=== PATIENT | male | born 1985 | race Caucasian/White ===

== ENCOUNTER 2022-09-22 09:37 | Emergency (ER) | payer BC ==
[2022-09-22] MEDS ORDERED: Diphtheria,Pertussis(Acell),Tetanus Vaccine 0.5 ML Syringe IM ONE (10:15)
[2022-09-22] MEDS ORDERED: Lidocaine 1% PF 2 ML SDV INJECT ONE (10:15)
[2022-09-22] MEDS ORDERED: Cephalexin 500 MG Cap PO ONE (10:29)
[2022-09-22] MEDS ORDERED: Acetaminophen/HYDROcodone 325-5 MG Tab PO ONE (10:29)
== END 2022-09-22 11:01 | disposition home or self-care (01) ==
LOC: MW.ED 09:37
DX: S67.191A Crushing injury of left index finger, initial encounter (principal); H66.91 Otitis media, unspecified, right ear; Z79.899 Other long term (current) drug therapy; Z23 Encounter for immunization
CPT/HCPCS: 64450; 73140; 90471; 90715; 99283; A9270

== ENCOUNTER 2023-10-30 23:35 | Emergency (ER) | payer BC ==
[2023-10-31] MEDS ORDERED: Ibuprofen 400 MG Tab PO ONE (00:04)
== END 2023-10-31 00:59 | disposition home or self-care (01) ==
LOC: MW.ED 23:35
DX: J02.9 Acute pharyngitis, unspecified (principal); Z20.822 Contact with and (suspected) exposure to COVID-19
CPT/HCPCS: 87651; 99283; A9270

== ENCOUNTER 2024-09-04 21:59 | Emergency (ER) | payer OTHER ==
[2024-09-04] MEDS: Cyclobenzaprine 10 MG Tab PO ONE (23:45)
== END 2024-09-04 23:58 | disposition home or self-care (01) ==
LOC: MW.ED 21:59
DX: S39.011A Strain of muscle, fascia and tendon of abdomen, initial encounter (principal); X58.XXXA Exposure to other specified factors, initial encounter
CPT/HCPCS: 93971; 99283; A9270

== ENCOUNTER 2024-09-16 18:56 | Emergency (ER) | payer OTHER | END 2024-09-16 20:40 | disposition home or self-care (01) | LOC: MW.ED 18:56 | DX: L03.116 Cellulitis of left lower limb (principal); Z79.899 Other long term (current) drug therapy; Z75.8 Other problems related to medical facilities and other health care | CPT/HCPCS: 99283 ==

== ENCOUNTER 2024-09-22 05:19 | Emergency (ER) | payer OTHER ==
[2024-09-22] MEDS: Ketorolac 30 MG/ML SDV IM ONE (06:43)
== END 2024-09-22 06:51 | disposition home or self-care (01) ==
LOC: MW.ED 05:19
DX: L03.115 Cellulitis of right lower limb (principal); Z79.899 Other long term (current) drug therapy
CPT/HCPCS: 96372; 99283; J1885

== ENCOUNTER 2025-02-01 19:32 | Emergency (ER) | payer BC ==
[2025-02-01 21:23] LABS: BASOPHILS ABSOLUTE AUTO 0.14 K/uL (0.00-0.20); BASOPHILS PERCENT AUTO 0.8 % (0.0-1.0); EOSINOPHILS ABSOLUTE AUTO 0.22 K/uL (0.00-0.45); EOSINOPHILS PERCENT AUTO 1.3 % (0.0-6.0); HEMATOCRIT 46.5 % (42.0-52.0); HEMOGLOBIN 15.5 g/dL (14.0-18.0); IMMATURE GRAN ABSOLUTE AUTO 0.15 K/uL (0.00-0.05); IMMATURE GRAN PERCENT AUTO 0.9 % (0.0-0.4); LYMPHOCYTES ABSOLUTE AUTO 2.65 K/uL (1.00-4.80); LYMPHOCYTES PERCENT AUTO 15.7 % (24.0-44.0); MEAN CORPUSCULAR HGB CONC 33.3 g/dL (32.0-36.0); MEAN PLATELET VOLUME 9.7 fL (9.4-12.4); MONOCYTES ABSOLUTE AUTO 1.28 K/uL (0.00-0.80); MONOCYTES PERCENT AUTO 7.6 % (0.0-8.0); NEUTROPHILS ABSOLUTE AUTO 12.49 K/uL (1.80-7.70); NEUTROPHILS PERCENT AUTO 73.7 % (41.0-71.0); PLATELET COUNT,PLT 353 K/uL (150-400); RED BLOOD CELL COUNT 5.74 M/uL (4.52-5.90); WHITE BLOOD CELL COUNT,WBC 16.93 K/uL (3.9-11.3)
[2025-02-01 21:52] LABS: CALCIUM 9.1 mg/dL (8.5-10.1); CARBON DIOXIDE,CO2 27.6 mmol/L (21.0-32.0); CREATININE 1.3 mg/dL (0.8-1.3); EST CRCL DRUG DOSING (CG) 82.08 mL/min; POTASSIUM,K 4.3 mmol/L (3.5-5.1)
[2025-02-01] MEDS: Diltiazem 25 MG/5 ML SDV IVPUSH ONE ×2 (22:25→22:52)
[2025-02-02] MEDS: Diltiazem 120 MG Cap.CD PO ONE
[2025-02-02] MEDS: Apixaban 5 MG Tab PO ONE (01:07)
[2025-02-02] MEDS: LORazepam 2 MG/ML SDV IVPUSH ONE (01:07)
[2025-02-02] MEDS: Diltiazem 100 MG in Sodium Chloride 0.9% 100 ML IV SCH (01:27)
== END 2025-02-02 01:50 ==
LOC: MW.ED 19:32
DX: I48.91 Unspecified atrial fibrillation (principal)
CPT/HCPCS: 36415; 71046; 80048; 83605; 83735; 84484; 85025; 93005; 96365; 96375; 96376; 99285; A9270; J2060; J3490; 99283

== ENCOUNTER 2025-02-24 07:15 | Emergency (ER) | payer OTHER, BC ==
[2025-02-24] MEDS ORDERED: Morphine 2 MG/ML SYRINGE IVPUSH PRN (07:35)
[2025-02-24] MEDS ORDERED: Ondansetron 4 MG/2 ML SDV IVPUSH PRN (07:36)
[2025-02-24] MEDS: Dexamethasone 4 MG/ML SDV IVPUSH ONE (07:49)
[2025-02-24 07:51] LABS: BASOPHILS ABSOLUTE AUTO 0.18 K/uL (0.00-0.20); BASOPHILS PERCENT AUTO 1.3 % (0.0-1.0); EOSINOPHILS ABSOLUTE AUTO 0.42 K/uL (0.00-0.45); EOSINOPHILS PERCENT AUTO 2.9 % (0.0-6.0); HEMATOCRIT 47.7 % (42.0-52.0); HEMOGLOBIN 15.6 g/dL (14.0-18.0); IMMATURE GRAN ABSOLUTE AUTO 0.14 K/uL (0.00-0.05); LYMPHOCYTES ABSOLUTE AUTO 1.62 K/uL (1.00-4.80); LYMPHOCYTES PERCENT AUTO 11.4 % (24.0-44.0); MEAN CORPUSCULAR HEMOGLOBIN 26.8 pg (28.0-32.0); MEAN CORPUSCULAR HGB CONC 32.7 g/dL (32.0-36.0); MEAN CORPUSCULAR VOLUME 81.8 fL (83.0-99.0); MEAN PLATELET VOLUME 9.6 fL (9.4-12.4); MONOCYTES ABSOLUTE AUTO 1.31 K/uL (0.00-0.80); MONOCYTES PERCENT AUTO 9.2 % (0.0-8.0); NEUTROPHILS ABSOLUTE AUTO 10.59 K/uL (1.80-7.70); NEUTROPHILS PERCENT AUTO 74.2 % (41.0-71.0); PLATELET COUNT,PLT 303 K/uL (150-400); RED BLOOD CELL COUNT 5.83 M/uL (4.52-5.90); WHITE BLOOD CELL COUNT,WBC 14.26 K/uL (3.9-11.3)
[2025-02-24 08:23] LABS: ALBUMIN 3.5 g/dL (3.4-5.0); BILIRUBIN TOTAL 0.4 mg/dL (0.2-1.0); CALCIUM 8.8 mg/dL (8.5-10.1); CARBON DIOXIDE,CO2 28.1 mmol/L (21.0-32.0); CREATININE 1.2 mg/dL (0.8-1.3); EST CRCL DRUG DOSING (CG) 88.92 mL/min; MAGNESIUM 2.1 mg/dL (1.8-2.4); POTASSIUM,K 4.7 mmol/L (3.5-5.1)
== END 2025-02-24 09:37 | disposition home or self-care (01) ==
LOC: MW.ED 07:15
DX: R07.9 Chest pain, unspecified (principal); I50.9 Heart failure, unspecified
CPT/HCPCS: 36415; 71045; 80053; 83690; 83735; 83880; 84484; 85025; 93005; 96374; 99285; J1100; 93010; 99284

== ENCOUNTER 2025-03-23 11:37 | Emergency (ER) | payer BC ==
[2025-03-23] MEDS ORDERED: Sodium Chloride 0.9% 10 ML Syringe FLUSH PRN (12:12)
[2025-03-23] MEDS ORDERED: Sodium Chloride 0.9% 20 ML SDV IV PRN (12:12)
[2025-03-23] MEDS ORDERED: Sodium Chloride 0.9% 2.5 ML Syringe FLUSH PRN (12:12)
[2025-03-23 12:22] LABS: BASOPHILS ABSOLUTE AUTO 0.15 K/uL (0.00-0.20); BASOPHILS PERCENT AUTO 1.1 % (0.0-1.0); EOSINOPHILS ABSOLUTE AUTO 0.35 K/uL (0.00-0.45); EOSINOPHILS PERCENT AUTO 2.5 % (0.0-6.0); HEMATOCRIT 48.9 % (42.0-52.0); HEMOGLOBIN 16.3 g/dL (14.0-18.0); IMMATURE GRAN ABSOLUTE AUTO 0.14 K/uL (0.00-0.05); LYMPHOCYTES ABSOLUTE AUTO 2.18 K/uL (1.00-4.80); LYMPHOCYTES PERCENT AUTO 15.4 % (24.0-44.0); MEAN CORPUSCULAR HEMOGLOBIN 26.8 pg (28.0-32.0); MEAN CORPUSCULAR HGB CONC 33.3 g/dL (32.0-36.0); MEAN CORPUSCULAR VOLUME 80.3 fL (83.0-99.0); MEAN PLATELET VOLUME 9.9 fL (9.4-12.4); MONOCYTES ABSOLUTE AUTO 1.13 K/uL (0.00-0.80); NEUTROPHILS ABSOLUTE AUTO 10.24 K/uL (1.80-7.70); PLATELET COUNT,PLT 316 K/uL (150-400); RED BLOOD CELL COUNT 6.09 M/uL (4.52-5.90); WHITE BLOOD CELL COUNT,WBC 14.19 K/uL (3.9-11.3)
[2025-03-23] MEDS: Albuterol/Ipratropium 3.0-0.5 MG/3 ML Neb Soln NEB ONE (12:27)
[2025-03-23 12:46] LABS: A/G RATIO 1.1 (0.9-1.6); CALCIUM 9.2 mg/dL (8.5-10.1); CARBON DIOXIDE,CO2 25.3 mmol/L (21.0-32.0); CREATININE 1.2 mg/dL (0.8-1.3); EST CRCL DRUG DOSING (CG) 88.92 mL/min; POTASSIUM,K 3.8 mmol/L (3.5-5.1); PROTEIN TOTAL,TP 7.8 g/dL (6.4-8.2)
[2025-03-23] MEDS: Iopamidol 755 MG/ML 500 ML Multipack Bottle IVPUSH STA (13:51)
[2025-03-23] MEDS: predniSONE 20 MG Tab PO ONE (14:46)
== END 2025-03-23 14:50 | disposition home or self-care (01) ==
LOC: MW.ED 11:37
DX: R06.02 Shortness of breath (principal); Z79.899 Other long term (current) drug therapy; Z79.51 Long term (current) use of inhaled steroids
CPT/HCPCS: 36415; 71045; 71275; 80053; 83880; 84484; 85025; 85379; 93005; 99285; A9270; J7620; Q9967; 93010; 99284